=== PATIENT | male | born 1955 | race Caucasian/White ===

== ENCOUNTER 2021-05-05 17:43 | Emergency (ER) | payer MEDICAID, MEDICARE, OTHER ==
[~2021-05-05] VITALS: Ht 182.9 cm; Wt 126.6 kg
--- NOTE | 2021-05-05 18:42 | NUR ---
[facility] FROM [facility] C/O BILATERAL LEG SWELLING STARTED 2 DAYS AGO. DENIES PAIN. IN ROOM AIR AND DENIES SOB. RESPIRATION REGULAR AND UNLABORED. WILL CONTINUE TO MONITOR THE PATIENT.
--- NOTE | 2021-05-05 18:59 | NUR ---
PHLEBATOMIST AT THE BEDSIDE
--- NOTE | 2021-05-05 19:23 | NUR ---
REPORT GIVEN TO NURSE DENTON FOR KASEY
[2021-05-05 19:53] LABS: CALCIUM, SERUM 9.7 mg/dL (8.5-10.1); CREATININE 1.3 mg/dL (0.6-1.3); POTASSIUM 3.7 mmol/L (3.5-5.1)
[2021-05-05 20:05] LABS: ALBUMIN 3.5 g/dL (3.4-5.0); BILIRUBIN,TOTAL 0.2 mg/dL (0.2-1.0)
[2021-05-05 20:25] LABS: BASOPHILS # (AUTO) 0.1 K/uL (0.0-0.2); BASOPHILS % (AUTO) 0.9 % (0.0-2.0); EOSINOPHILS % (AUTO) 1.8 % (0.0-6.0); HEMATOCRIT 42 % (39-51); HEMOGLOBIN 13.8 g/dL (13.5-17.5); LYMPHOCYTES # (AUTO) 2.2 K/uL (0.8-4.8); LYMPHOCYTES % (AUTO) 16.5 % (20.0-44.0); MEAN CORPUSCULAR HGB CONC 33 g/dl (31.0-36.0); MEAN CORPUSCULAR VOLUME 89 fL (80-96); MONOCYTES # (AUTO) 1.1 K/uL (0.1-1.30); MONOCYTES % (AUTO) 8.7 % (2.0-12.0); NEUTROPHILS # (AUTO) 9.4 K/uL (1.8-8.9); NEUTROPHILS % (AUTO) 72.1 % (43.0-81.0); PLATELET COUNT (AUTO) 274 K/uL (150-450); RED BLOOD CELL COUNT(AUTO) 4.72 MIL/uL (4.5-6.0); WHITE BLOOD COUNT (AUTO) 13.1 K/uL (4.3-11.0)
[2021-05-05] MEDS ORDERED: APIXABAN 5 MG TABLET PO SCH (20:30)
[2021-05-05] MEDS ORDERED: APIXABAN 5 MG TABLET ONE (20:37)
--- NOTE | 2021-05-05 20:42 | NUR ---
TATI EPRP PAGED PER DR BARR.
[2021-05-05 20:46] VITALS: BP 158/86
--- NOTE | 2021-05-05 20:46 | NUR ---
TATI TRINIDDA SPEAKING TO ER MD BARR
--- NOTE | 2021-05-05 21:17 | NUR ---
PT ACCEPTED TO [facility] BY DR JORGE. # FOR REPORT [phone]. [facility] BLS ETA [id number]
--- NOTE | 2021-05-05 21:38 | NUR ---
REPORT GIVEN TO COLTEN VILLELA FOR KASEY
--- NOTE | 2021-05-05 21:41 | NUR ---
PRNAMBULANCE AT BED SIDE TO [facility] THE PT
== END 2021-05-05 21:51 | disposition short-term general hospital (02) ==
LOC: ER 18:02
DX: I82.412 Acute embolism and thrombosis of left femoral vein (principal); Z88.0 Allergy status to penicillin; Z88.8 Allergy status to other drugs, medicaments and biological substances; F31.9 Bipolar disorder, unspecified; I10 Essential (primary) hypertension; I89.0 Lymphedema, not elsewhere classified; Z20.822 Contact with and (suspected) exposure to COVID-19
CPT/HCPCS: 36415; 80053; 83880; 85025; 85730; 87081; 87426; 93970; 99285; C9803